=== PATIENT | female | born 1955 | race Asian ===

== ENCOUNTER 2021-06-17 15:22 | Emergency (ER) | payer OTHER ==
[~2021-06-17] VITALS: Ht 165.1 cm; Wt 88.5 kg
[2021-06-17 17:53] VITALS: BP 160/90; TEMP 97.8
== END 2021-06-17 18:00 | disposition home or self-care (01) ==
LOC: ED 15:22
DX: M17.11 Unilateral primary osteoarthritis, right knee (principal); M25.561 Pain in right knee; I16.0 Hypertensive urgency
CPT/HCPCS: 99283; J1885; J2930